=== PATIENT | female | born 1960 | race Caucasian/White ===

== ENCOUNTER → 2021-03-16 | Outpatient (CLI) | payer OTHER ==
[~2021-03-16] MED LIST: APAP500 PO; B12INJ IM; CALCIUM 500 +1 EAC5 PO; EXCEDRIN CAPLE1 EACH PO; FLONASE 0.05%50 MCG NASAL; GARCINIA CAMBO1 EACH PO; LEVOTHYROXINE0.05 MG PO; LINZESS145 MCG PO; MUCINEX TA600 MG/TA2 PO; MULTIVITAMINS1 EAC7 PO; NATURAL ESTROGEN SUBQ; NEXIUM40 MG PO
[2021-03-16 12:24] LABS: HEMATOCRIT 41.6 % (37.0-47.0); HEMOGLOBIN 13.6 gm/dL (12.0-15.0); MCH 29.8 pg (26.0-34.0); MCHC 32.7 g/dL (28.0-37.0); MCV 91.1 fL (80.0-100.0); RBC 4.57 mil/uL (4.20-5.00); RDW 13.1 % (10.5-14.5); WBC 7.8 thou/uL (4.0-11.0)
[2021-03-16 12:43] LABS: ALBUMIN 3.9 g/dL (3.4-5.0); CALCIUM 9.3 mg/dL (8.5-10.1); CREATININE 0.8 mg/dL (0.6-1.0); TOTAL BILIRUBIN 0.4 mg/dL (0.2-1.0); TOTAL PROTEIN 7.2 g/dL (6.4-8.2)
== END ==
LOC: CAT 11:38
PROVIDERS: ATTEND Family Medicine
DX: R14.0 Abdominal distension (gaseous) (principal); R10.9 Unspecified abdominal pain

== ENCOUNTER → 2021-03-17 | Outpatient (CLI) | payer OTHER | LOC: ULTRA 13:04 | PROVIDERS: ATTEND Nurse Practitioner | DX: R14.0 Abdominal distension (gaseous) (principal) ==